=== PATIENT | female | born 1980 | race Caucasian/White ===

== ENCOUNTER 2016-12-25 21:57 | Emergency (ER) | payer OTHER ==
--- NOTE | ~2016-12-25 | CR58 ---
[facility] A Service of [facility] & [facility] RADIOLOGY TEXT RESULTS PATIENT: SAL LOCKHART LOCATION: SED : 76 UNIT #: [id number] AGE: [address]: Avelino Sun SEX: F ORDER DR: [id number] [address] [id number] E MR#: [id number] Acc #: [id number] NAME: SAL LOCKHART : 1980 SEX: F STUDY DATE/TIME: 12/25/2016 22:31 UNIT: SED ROOM: STUDY DESCRIPTION: CR Cervical Spine 2 or 3 Views Attending Physician: Avelino Sun P.A.-C. Referring Physician: Avelino Sun P.A.-C. Ordering Physician: Avelino Sun P.A.-C. Primary Care Physician: Chandu Hollis M.D. MEDICAL IMAGING REPORT This report is preliminary unless electronic signature is present. EXAM Cervical spine series, 12/25/2016 HISTORY 36-year-old female in the ED complaining of 3-day history of headache and neck pain. No reported acute injury. TECHNIQUE Three-view cervical spine series. FINDINGS No acute or chronic fracture deformity or other osseous lesion is demonstrated. Cervical disc spaces and cervical vertebral alignment are within normal limits. IMPRESSION Negative cervical spine series. Dictated by... Marco Haywood M.D. THIS IS AN ELECTRONICALLY VERIFIED REPORT Marco Haywood M.D. at 12/26/2016 6:00 AM DUNIA/randi TD: 12/26/2016 02:47 JOB #: [id number] MEDICAL IMAGING REPORT Page 1 of 1
[~2016-12-25 21:57] MED LIST: ADVAIR 2501 DISK W/D PO; ALBUTEROL17 GM INH; ALLEGRA-D1 TAB.SR1 PO; BACTRIM DS TABL1 TA1 PO; BENTYL20 MG PO; BUSPAR5 M1 PO; CIPRO PO; CLARITIN-D1 TAB 12 H PO; DOXYCYCLINE PO; E-MYCIN250 MG PO; EFFEXOR PO; FIORICET 50-301 EACH PO; FLEXERIL10 MG PO; FLOMAX0.4 M1 PO; IBUPROFEN PO; KLONOPIN0.5 MG PO; KLONOPIN1 MG PO; LORATADINE PO; MEDROL PO; MOTRIN600 MG PO; NASONEX17 GM; NO MEDICATIONS; PYRIDIUM PO; VIBRAMYCIN100 M1 PO; VICODIN PO; VOLTAREN50 MG PO; VOLTAREN75 MG PO; ZOFRAN PO; ZYRTEC PO; [UNRECOGNIZED DRUG - OTHER]
== END 2016-12-25 23:59 | disposition home or self-care (01) ==
LOC: SED 21:57
DX: G44.209 Tension-type headache, unspecified, not intractable (principal); M54.2 Cervicalgia; F17.210 Nicotine dependence, cigarettes, uncomplicated; Z98.51 Tubal ligation status; Z88.0 Allergy status to penicillin; Z88.1 Allergy status to other antibiotic agents
CPT/HCPCS: 72040; 99283

== ENCOUNTER → 2017-03-07 | Outpatient (CLI) | payer OTHER ==
[~2017-03-07] MED LIST changes: +VITAMIN D350000 UNIT
--- NOTE | ~2017-03-07 | CR20 ---
[facility]. [facility] A Service of [facility] RADIOLOGY TEXT RESULTS PATIENT: SAL LOCKHART LOCATION: [facility] : [birth year] UNIT #: [id number] AGE: [address]: Chandu Hollis MD SEX: F ORDER DR: [id number] [address] [address] [id number] O MR#: [id number] Acc #: [id number] NAME: SAL LOCKHART : 1980 SEX: F STUDY DATE/TIME: 03/07/2017 20:43 UNIT: [facility] ROOM: STUDY DESCRIPTION: CR Ankle Min 3 Views Lt Attending Physician: Chandu Hollis M.D. Referring Physician: Chandu Hollis M.D. Ordering Physician: Chandu Hollis M.D. Primary Care Physician: Chandu Hollis M.D. MEDICAL IMAGING REPORT This report is preliminary unless electronic signature is present. EXAM Left ankle HISTORY Left ankle pain for the past week with no known trauma. TECHNIQUE Three views of the ankle were obtained and compared with 03/28/2016. FINDINGS AP, lateral, and oblique projections of the ankle show satisfactory integrity of the joint mortise with a smooth articular surface. There is no identifiable fracture, dislocation, or radiopaque foreign body. IMPRESSION Normal ankle. Dictated by... Ton Condon M.D. THIS IS AN ELECTRONICALLY VERIFIED REPORT Ton Condon M.D. at 03/08/2017 4:08 PM YOUNG/rod TD: 03/08/2017 06:46 JOB #: [id number] MEDICAL IMAGING REPORT Page 1 of 1
--- NOTE | ~2017-03-07 | CR126 ---
[facility] A Service of [facility] RADIOLOGY TEXT RESULTS PATIENT: SAL LOCKHART LOCATION: [facility] : [birth year] UNIT #: [id number] AGE: [address]: Chandu Hollis MD SEX: F ORDER DR: [id number] [address] [address] [id number] O MR#: [id number] Acc #: [id number] NAME: SAL LOCKHART : 1980 SEX: F STUDY DATE/TIME: 03/07/2017 20:43 UNIT: [facility] ROOM: STUDY DESCRIPTION: CR Foot Complete Min 3 View Lt Attending Physician: Chandu Hollis M.D. Referring Physician: Chandu Hollis M.D. Ordering Physician: Chandu Hollis M.D. Primary Care Physician: Chandu Hollis M.D. MEDICAL IMAGING REPORT This report is preliminary unless electronic signature is present. EXAM Left foot HISTORY Left foot pain for the past week with no known trauma. TECHNIQUE Three views of the foot were obtained. FINDINGS Three views of the foot show no acute bony abnormalities. There is a small chronic appearing ossification of the third toe just to the lateral side of the PIP joint measuring about 1-2 mm in diameter. This could represent artifact on the skin, a small foreign body or a small ligamentous ossification but it does not appear to be acute. Joint spaces of the foot are preserved. No erosions are seen. IMPRESSION No acute findings. Small chronic appearing ossification just lateral to the third PIP joint. Dictated by... Ton Condon M.D. THIS IS AN ELECTRONICALLY VERIFIED REPORT Ton Condon M.D. at 03/08/2017 4:08 PM YOUNG/rod TD: 03/08/2017 06:48 JOB #: [id number] [facility] A Service of [facility] RADIOLOGY TEXT RESULTS PATIENT: SAL LOCKHART LOCATION: [facility] : 76 UNIT #: [id number] AGE: [address]: Chandu Hollis MD SEX: F ORDER DR: MEDICAL IMAGING REPORT Page 1 of 1
== END | disposition home or self-care (01) ==
LOC: SRAD 20:37
DX: M25.572 Pain in left ankle and joints of left foot (principal)
CPT/HCPCS: 73610; 73630

== ENCOUNTER 2017-05-12 20:40 | Emergency (ER) | payer OTHER ==
[~2017-05-12] VITALS: Ht 162.6 cm; Wt 58.0 kg
[~2017-05-12 20:40] MED LIST changes: -VITAMIN D350000 UNIT
[2017-05-12] MEDS ORDERED: VITAMIN D350000 UNIT (20:54)
== END 2017-05-12 22:53 | disposition home or self-care (01) ==
LOC: SED 20:40
DX: J02.0 Streptococcal pharyngitis (principal); F41.9 Anxiety disorder, unspecified; F32.9 Major depressive disorder, single episode, unspecified; F17.210 Nicotine dependence, cigarettes, uncomplicated; Z88.0 Allergy status to penicillin; Z88.1 Allergy status to other antibiotic agents
CPT/HCPCS: 87880; 99283